=== PATIENT | female | born 1990 | race Caucasian/White ===

== ENCOUNTER 2019-03-07 15:20 | Emergency (ER) | payer MEDICAID ==
[~2019-03-07] VITALS: Ht 162.6 cm; Wt 91.0 kg
[~2019-03-07 15:20] MED LIST: CITA20TA75; PARO30TA62
[2019-03-07] MEDS ORDERED: MORPHINE SULFATE 4 MG/ML CPJ (NOT FOR IM USE) IV STA (15:54)
[2019-03-07] MEDS ORDERED: KETOROLAC 30MG/ML VIAL IV STA (15:54)
[2019-03-07] MEDS ORDERED: MORPHINE SULFATE 4 MG/ML CPJ (NOT FOR IM USE) IV ONE (17:15)
[2019-03-07 17:53] VITALS: BP 110/67
== END 2019-03-07 18:12 | disposition home or self-care (01) ==
LOC: ER 15:20
DX: M25.561 Pain in right knee (principal); Z90.49 Acquired absence of other specified parts of digestive tract
CPT/HCPCS: 73560; 96374; 96375; 96376; 99283; J1885; J2270; L1830

== ENCOUNTER 2020-07-07 14:25 | Emergency (ER) | payer MEDICAID ==
[~2020-07-07] VITALS: Ht 165.1 cm; Wt 90.0 kg
[2020-07-07 14:32] VITALS: BP 129/70
[2020-07-07] MEDS ORDERED: KETOROLAC 30MG/ML VIAL IM ONE (16:45)
== END 2020-07-07 17:17 | disposition home or self-care (01) ==
LOC: ER 14:25
DX: M25.572 Pain in left ankle and joints of left foot (principal); R03.0 Elevated blood-pressure reading, without diagnosis of hypertension
CPT/HCPCS: 73610; 96372; 99283; J1885